=== PATIENT | male | born 1945 | race Caucasian/White ===

== ENCOUNTER 2024-10-12 07:32 | Day surgery (SDC) | payer MEDICARE ==
[2024-10-10 10:22] LABS: BASOPHILS % 0.6 % (0.0-1.0); EOSINOPHILS % 1.9 % (0.0-6.0); LYMPHOCYTES % 40.1 % (18.0-39.1); MONOCYTES % 8.7 % (4.4-11.3); NEUTROPHILS % 48.6 % (38.7-80.0); RED CELL DISTRIBUTION WIDTH 13.2 % (11.7-14.4)
[2024-10-10 10:37] LABS: INR 1.0
[2024-10-10 10:44] LABS: EST GLOMERULAR FILTRATION RATE 88.0 ML/MIN (>=60)
[~2024-10-12] VITALS: Ht 175.3 cm; Wt 101.6 kg
[2024-10-12] VITALS (11 sets, daily range): BP systolic 133–154; BP diastolic 71–80; PULSE 51–62; RESP 13–20; TEMP 97.5; O2SAT 95–100
[~2024-10-12 07:32] MED LIST: ASPIRIN PO; CARVEDILOL12.5 MG PO; DIOVAN160 MG PO; FLOMAX0.4 MG PO; LOSARTAN POTASS25 MG PO; NEURONTIN300 MG PO; PLAVIX75 MG PO; SIMVASTATIN80 MG PO
[2024-10-12] MEDS ORDERED: SODIUM CHLORIDE 0.9% 1000ML 1,000 ML ONE (10:02)
[2024-10-12] MEDS ORDERED: HEPARIN SOD (PORCINE) 1000 UNIT/ML 30ML ONE (10:02)
[2024-10-12] MEDS ORDERED: LIDOCAINE HCL 2% LOCAL 20 ML VIAL ONE (10:02)
[2024-10-12] MEDS ORDERED: IOPAMIDOL 370 MG/ML 100 ML INFUS..BTL INJ ONE (10:02)
[2024-10-12] MEDS ORDERED: HEPARIN SOD/SOD CHLORIDE 2,000 ML ONE (10:02)
[2024-10-12] MEDS ORDERED: VERAPAMIL HCL 2.5 MG/ML 2 ML VIAL ONE (10:02)
[2024-10-12] MEDS ORDERED: NITROGLYCERIN/D5W 200 MCG/ML 250 ML ONE (10:02)
[2024-10-12] MEDS ORDERED: FENTANYL CITRATE/PF 100MCG/2 ML INJ ONE (10:03)
[2024-10-12] MEDS ORDERED: MIDAZOLAM HCL 2 MG/2 ML VIAL ONE ×2 (10:03→10:21)
[2024-10-12] MEDS ORDERED: CLOPIDOGREL BISULFATE 75 MG TAB ONE (10:56)
== END 2024-10-12 14:00 | disposition home or self-care (01) ==
LOC: CATH LAB 07:32
PROVIDERS: ATTEND Internal Medicine Cardiovascular Disease
DX: I25.10 Atherosclerotic heart disease of native coronary artery without angina pectoris (principal); I10 Essential (primary) hypertension; I25.5 Ischemic cardiomyopathy; E78.00 Pure hypercholesterolemia, unspecified; Z95.5 Presence of coronary angioplasty implant and graft; Z01.812 Encounter for preprocedural laboratory examination; Z79.82 Long term (current) use of aspirin; Z79.899 Other long term (current) drug therapy; Z68.33 Body mass index [BMI] 33.0-33.9, adult
CPT/HCPCS: 36415; 76937; 80053; 85025; 85610; 93458; C1725; C1753; C1769 ×2; C1887 ×2; C1894; J1644; J2003; J2250; J3010; J7030; Q9967; 99152; 99153